=== PATIENT | female | born 1990 | race Caucasian/White ===

== ENCOUNTER 2021-01-12 10:53 | Emergency (ER) | payer SELFPAY ==
[~2021-01-12] VITALS: Ht 160 cm; Wt 91.8 kg
[2021-01-12] MEDS ORDERED: KETOROLAC 60MG 2ML VIAL IM ONE (11:40)
--- NOTE | 2021-01-12 12:28 | REP ---
INDICATION: problems with IUD/pain. COMPARISON: None. TECHNIQUE: Transabdominal and transvaginal scanning performed. FINDINGS: Uterine dimensions are 7.7 x 3.1 x 4.7 cm. Endometrial echo is obscured by the IUD within the endometrial canal. The bladder measures 7.5 x 6.8 x 3.8cm. The right ovary not visualized due to overlying bowel gas. The left ovary dimensions are 3.2 x 2.2 x 2.2 cm. It's Doppler flow was normal with resistive index of 0.48. There is no adnexal mass identified. No free fluid is seen in the cul-de-sac. IMPRESSION: IUD within the endometrial canal. Right ovary could not be visualized. Left ovary appears normal. No adnexal mass or free fluid. <Electronically signed by Gentry Beal > 01/12/21 1405
[2021-01-12] MEDS ORDERED: KETO10TAB PO (14:03)
[2021-01-12 14:24] VITALS: BP 121/82
== END 2021-01-12 14:28 | disposition home or self-care (01) ==
LOC: M ED 10:53
DX: T83.39XA Other mechanical complication of intrauterine contraceptive device, initial encounter (principal); Y92.9 Unspecified place or not applicable; Y93.9 Activity, unspecified; F12.10 Cannabis abuse, uncomplicated; E66.9 Obesity, unspecified
CPT/HCPCS: 58301; 76830; 76856; 93976; 96372; 99283; J1885

== ENCOUNTER → 2021-08-14 | Outpatient (REF) ==
[~2021-08-14] MED LIST: KETO10TAB PO
== END ==
LOC: M LAB 10:48
PROVIDERS: ATTEND Nurse Practitioner Family
DX: Z11.52 Encounter for screening for COVID-19 (principal)

== ENCOUNTER 2021-11-08 15:00 | Emergency (ER) | payer BC, SELFPAY ==
[~2021-11-08] VITALS: Ht 160 cm; Wt 84.1 kg
[2021-11-08] MEDS ORDERED: PANTOPRAZOLE 40MG VIAL (C9113 PER 1) IV ONE (20:20)
[2021-11-08] MEDS ORDERED: ONDANSETRON 4MG/2ML VIAL IV ONE (20:20)
[2021-11-08] MEDS ORDERED: KETOROLAC 30 MG/ML 1ML VIAL IV ONE (20:20)
[2021-11-08] MEDS ORDERED: NS 1,000 ML IV ONE (20:20)
[2021-11-08 20:53] LABS: BASO % 0.8 % (0.0-1.0); EOS # 0.1 10^3/uL (0.0-0.5); EOS % 1.2 % (0.0-3.0); HEMATOCRIT 43.9 % (36.0-47.0); HEMOGLOBIN 14.2 g/dl (12.0-15.5); LYMPH # 1.4 10^3/uL (1.5-5.0); MEAN CORPUSCULAR HEMOGLOBIN 29.4 pg (27.0-33.0); MEAN CORPUSCULAR HGB CONC 32.3 g/dl (32.0-36.5); MEAN CORPUSCULAR VOLUME 90.9 fl (80.0-96.0); MONO # 0.4 10^3/uL (0.0-0.8); MONO % 8.7 % (2.0-8.0); NEUTROPHILS % 60.9 % (36.0-66.0); PLATELET COUNT, AUTOMATED 249 10^3/uL (150-450); RED BLOOD COUNT 4.83 10^6/uL (4.00-5.40)
[2021-11-08 21:26] LABS: HCG, SERUM QUALITATIVE NEGATIVE (NEGATIVE)
[2021-11-08 21:28] LABS: ALT/SGPT 21 U/L (12-78); BILIRUBIN,DIRECT 0.1 MG/DL (0.0-0.2); BILIRUBIN,TOTAL 0.5 MG/DL (0.2-1.0); BLOOD UREA NITROGEN 7 MG/DL (7-18); CALCIUM LEVEL 9.3 MG/DL (8.5-10.1); CARBON DIOXIDE LEVEL 25 MEQ/L (21-32); CHLORIDE LEVEL 110 MEQ/L (98-107); GLOMERULAR FILTRATION RATE > 60.0 (>60); GLUCOSE, FASTING 82 MG/DL (70-100); LIPASE 48 U/L (73-393); SODIUM LEVEL 141 MEQ/L (136-145); TOTAL PROTEIN 7.3 GM/DL (6.4-8.2)
[2021-11-08] MEDS ORDERED: ISOVUE-370 76% 100ML VIAL As Ordered ONE (22:20)
[2021-11-09] MEDS ORDERED: ONDA4TAB6 PO (00:10)
[2021-11-09] MEDS ORDERED: AUGMENTIN 875 MG TAB PO ONE (00:45)
[2021-11-09] MEDS ORDERED: AMOX875T2 PO (00:45)
[2021-11-09 00:47] VITALS: BP 128/81
== END 2021-11-09 01:00 | disposition home or self-care (01) ==
LOC: M ED 20:56
DX: K52.89 Other specified noninfective gastroenteritis and colitis (principal); R10.9 Unspecified abdominal pain; N83.11 Corpus luteum cyst of right ovary
CPT/HCPCS: 74177; 80048; 80076; 83690; 84703; 85025; 96361; 96374; 96375; 99284; C9113; J1885; J2405; Q9967

== ENCOUNTER → 2021-11-20 | Outpatient (REF) | payer BC ==
[~2021-11-20] MED LIST changes: +AMOX875T2 PO; +ONDA4TAB6 PO
== END ==
LOC: M SFHCPLAZ 16:48
PROVIDERS: ATTEND Internal Medicine Hematology
DX: K29.00 Acute gastritis without bleeding (principal)